=== PATIENT | male | born 1970 | race Caucasian/White ===

== ENCOUNTER 2018-03-26 15:34 | Emergency (ER) | payer SELFPAY ==
[~2018-03-26] VITALS: Ht 180.3 cm; Wt 97.7 kg
[2018-03-26] MEDS ORDERED: ONDANSETRON HCL 4 MG/2 ML VIAL IVP ONE (16:30)
[2018-03-26] MEDS ORDERED: MORPHINE SULFATE 10 MG/ML SYRINGE IVP ONE (16:30)
[2018-03-26] MEDS ORDERED: SODIUM CHLORIDE 0.9% 1,000 ML IV ONE (16:30)
[2018-03-26] MEDS ORDERED: MORPHINE SULFATE 4 MG/ML SYRINGE IVP ONE (16:45)
[2018-03-26 17:09] VITALS: BP 138/56
[2018-03-26] MEDS ORDERED: PERTUSS(ACELL),DIPH,TET VAC/PF 0.5 ML VIAL IM ONE (17:15)
== END 2018-03-26 18:00 | disposition short-term general hospital (02) ==
LOC: EDBD 15:36 → EMS 15:36
DX: T21.22XA Burn of second degree of abdominal wall, initial encounter (principal); T22.212A Burn of second degree of left forearm, initial encounter; T20.20XA Burn of second degree of head, face, and neck, unspecified site, initial encounter; T24.202A Burn of second degree of unspecified site of left lower limb, except ankle and foot, initial encounter; T31.22 Burns involving 20-29% of body surface with 20-29% third degree burns; X08.8XXA Exposure to other specified smoke, fire and flames, initial encounter; Y93.89 Activity, other specified; Y92.89 Other specified places as the place of occurrence of the external cause; Y99.8 Other external cause status
CPT/HCPCS: 90471; 90715; 96374; 96375; 99291; J2270; J2405; J7030